=== PATIENT | male | born 1960 | race Caucasian/White ===

== ENCOUNTER 2020-10-02 14:58 | Outpatient (CLI) | payer OTHER, SELFPAY ==
--- NOTE | 2020-10-02 14:45 | DI.RAD_ITS ---
CLINICAL HISTORY: PAIN TECHNIQUE: 2D digital imaging was performed. COMPARISON: No exams were available for comparison FINDINGS: BONES: No acute fracture is present. No bony destructive lesion is seen. JOINTS: No dislocation present. SOFT TISSUE: Normal. IMPRESSION: No acute abnormality. DATA REPOSITORY: RADIATION DOSE DELIVERED:
== END 2020-10-02 14:59 | disposition home or self-care (01) ==
LOC: DIORS 14:58
PROVIDERS: PCP Nurse Practitioner; Visit Provider Student in an Organized Health Care Education/Training Program
DX: M25.511 Pain in right shoulder (principal)
CPT/HCPCS: 73030

== ENCOUNTER 2020-10-17 01:28 | Outpatient (CLI) | payer OTHER, SELFPAY ==
--- NOTE | 2020-10-17 08:00 | DI.MRI_ITS ---
EXAM: MR UPPER JOINT RT WO CLINICAL HISTORY: Worsening symptoms,rt AC JOINT PAIN,TENDONITIS,IMPINGEMENT SYNDROME TECHNIQUE: Multiplanar multisequence MRI of the shoulder was performed. COMPARISON: CR XR SHOULDER RT COMPLETE 2+V from 10/02/2020 FINDINGS: MARROW:There is no evidence of fracture, Hill-Sachs deformity, nor ominous osseous lesions. There are few small degenerative subarticular cysts noted lateral head. ROTATOR CUFF MECHANISM: AC JOINT/ACROMIUM: There are minimal degenerative changes in the AC joint. No downgoing osteophytes. The undersurface of the acromion is concave. No impinging undersurface soak evident at this level. . There is no evidence of os acromiale. Supraspinatus: There is a high-grade complete tear of the supraspinatus-rotator cuff tendon with retr action musculotendinous junction to the level the junction of mid and lateral thirds of the humeral h ead and fluid signal interposed in this region and seen in the subacromial-subdeltoid bursa. This le aves a gap distance of 2.3 cm AP by 1.9 cm distance from the torn retracted musculotendinous junction to the greater tuberosity. There is no prominent atrophy of the supraspinatus muscle. Infraspinatus: Intact. No evidence of tear nor muscle atrophy. Teres Minor: Intact. No evidence of tear nor muscle atrophy. Subscapularis/anterior cuff: Intact. No abnormal signal at the level of the multipennate insertional fibers. No significant tear nor atrophy. BICEPS TENDON: Exhibits normal position within the intertubercular groove. No obvious tear. No prominent tenosynovitis. LABRUM: Superior labrum is intact. There is a small focus of fluid signal in interposed between the posterior labrum and osseous glenoid consistent with small tear. Inferior labrum is intact. Mild in creased signal seen in the anterior labrum. There is no evidence of paralabral cyst. There is no de generative subarticular cysts in the osseous glenoid. GLENOHUMERAL JOINT: No prominent joint effusion. The majority of the fluid is in the subacromial-sub deltoid bursa. Minimal degenerative changes in the humeral head and osseous glenoid. No degenerativ e subarticular cysts. No prominent osteophytes.. CAPSULE: No capsular tears evident. The inferior glenohumeral ligament is intact. QUADRILATERAL SPACE: No evidence of mass in the region of the axillary nerve and dorsal circumflex hu meral vessels. Visualized triceps muscle at this level appears unremarkable. IMPRESSION: 1. The main finding here is prominent full-thickness tear of the supraspinatus-rotator cuff tendon wi th gap measurements as described above and prominent amount of fluid in the subacromial bursa. There is retraction of the musculotendinous junction to the level of the junction of the mid and lateral t hirds of the humeral head. No prominent muscle atrophy of the supraspinatus. There are small degene rative subarticular cysts and mild bone edema in the greater tuberosity on the lateral aspect of the humeral head. There are only minimal degenerative changes in the acromioclavicular joint. No promin ent impingement at this level. The undersurface of the acromion is concave. 2. There are no tear of the infraspinatus and teres minor nor obvious tearing of the multipennate ins ertional fibers of the anterior cuff-subscapularis. 3. Small labral tears as described above. No SLAP tear. No evidence of paralabral cyst. No degener ative subarticular cysts in the osseous glenoid. 4. DATA REPOSITORY:
== END 2020-10-17 01:48 ==
PROVIDERS: PCP Nurse Practitioner; Visit Provider Student in an Organized Health Care Education/Training Program
DX: M25.511 Pain in right shoulder (principal); M75.21 Bicipital tendinitis, right shoulder; M75.41 Impingement syndrome of right shoulder; M75.51 Bursitis of right shoulder; M75.121 Complete rotator cuff tear or rupture of right shoulder, not specified as traumatic; M75.81 Other shoulder lesions, right shoulder
CPT/HCPCS: 73221

== ENCOUNTER 2020-11-13 02:10 | Outpatient (CLI) | payer OTHER, SELFPAY ==
[2020-11-13 10:46] LABS: Source Nasal/Nares
[2020-11-13 13:49] LABS: COVID-19 PCR Negative (Negative)
== END 2020-11-13 02:11 | disposition home or self-care (01) ==
LOC: LBO 02:10
PROVIDERS: PCP Nurse Practitioner; Visit Provider Student in an Organized Health Care Education/Training Program
DX: Z20.822 Contact with and (suspected) exposure to COVID-19 (principal); Z01.818 Encounter for other preprocedural examination
CPT/HCPCS: 87635

== ENCOUNTER 2020-11-15 09:24 | Day surgery (SDC) | payer OTHER, SELFPAY ==
[2020-11-15] VITALS (12 sets, daily range): BP systolic 90–133; BP diastolic 52–84; PULSE 58–83; RESP 16–23; TEMP 36.3–36.9; O2SAT 92–96
[2020-11-15] MEDS: Lactated Ringers 1,000 ML 100 ML IV (10:07)
[2020-11-15] MEDS: ceFAZolin 2 GM/50 ML BAG IVPB (14:00)
[2020-11-15] MEDS: EPINEPHrine 30 MG/30 ML VIAL ×2 (14:35→14:45)
--- NOTE | 2020-11-15 16:23 | PDOC.DSDIS_ITS ---
Discharge Plan Disposition Patient Disposition: HOME Condition: Stable Discharge Details Reason For Visit: Right shoulder surgery Attending Provider: Harrison Cruz Primary Care Provider: Belen Cosby Home Meds and New Rx's Prescriptions: New naproxen 250 mg tablet 250 - 500 mg PO BID PRN (Reason: Moderate pain or swelling) Qty: 60 RF: 0 aspirin 81 mg tablet,delayed release (DR/EC) 81 mg PO DAILY 14 Days Qty: 14 RF: 0 oxycodone 5 mg tablet 5 - 10 mg PO Q4H PRN (Reason: moderate to severe pain) Qty: 22 RF: 0 Continued naproxen 250 mg tablet 250 - 500 mg PO BID PRN (Reason: pain, moderate) Qty: 60 RF: 0 Discontinued ibuprofen 800 mg tablet 800 mg PO BID PRN (Reason: pain) Qty: 60 RF: 0 Discharge Instructions Additional Instructions: Surgery: Shoulder arthroscopy with rotator cuff repair, extensive debridement, and subacromial decompression. Activity: You should keep your arm at your side in a neutral position at all times except for physical therapy. Do not try to lift or raise your arm using your own muscles. You should use the sling whenever you are out of the house. You may have to adjust the abduction pillow or remove it for comfort. At home it is best to remove the sling and rest the arm on a pillow at your side or support the operative side with your other hand. You may allow the arm to dangle at your side. A physical therapy prescription will be sent electronically to begin in 2-3 weeks. Prescriptions: Aspirin 81 mg take 1 daily to prevent a blood clot for 2 weeks Naproxen 250 mg take 1-2 every 12 hours with a meal as needed for moderate pain Oxycodone 5 mg take 1-2 every 4-6 hours as needed for severe pain You may use [id number] Tylenol (acetaminophen) as needed for mild pain. These pain medications may be taken all at once or in different combinations as needed. Also, recommend Colace (docusate) as a stool softener as surgery and pain medicine cause constipation. Dressings: Remove shoulder bandage after 3 days. Leave the sticky Steri-Strips in place until they fall off or remove them after you shower. Cover the incisions with Band-Aids or leave them open to air. You may shower after 5 days. Follow-up: 10-[address] Cruz You may take off the leg compression stockings this evening at home. You may also leave them on a few days longer if you have a history of leg swelling or edema. Let us know right away if you develop any redness, drainage, fevers, chest pain, or trouble breathing. Do not drink alcohol or drive for at least 24 hours after anesthesia. Please call the office during business hours with any questions or concerns. Referrals: Harrison Cruz MD [ [facility] STAFF PHYSICIAN] - Discharge Orders Discharge Orders: Discharge Order (Routine); Ordered 11/15/20 Ordered By: Harrison Cruz DS: Diagnosis Discharge Diagnosis (1) Rotator cuff tear, right: Status: Acute
--- NOTE | 2020-11-15 16:23 | W.PM.OP ---
Date of service: 11/15/20 Time of Service: 15:00 Operative Note Operative Note DATE OF PROCEDURE: 11/15/20 PRE-OP DIAGNOSIS: Right: 1. Rotator cuff tear 2. LHB tendinopathy 3. Bursitis 4. Impingement POST-OP DIAGNOSIS: same PROCEDURE: Right: 1. Rotator cuff repair, CPT# 38494. This involved repair of the supraspinatus using anchors and sutures to reattach the rotator cuff back to the footprint of the greater tuberosity. 2. Extensive debridement, CPT# 41966. This involved using arthroscopic hand instruments, power instruments, and radiofrequency instruments to release to debride areas of posterior labral tearing, anterior synovitis, bicipital groove fibrous tissue, and minimal articular sided rotator cuff fraying within the glenohumeral joint as well remove scar tissue and smooth bone spurs over the greater tuberosity supraspinatus footprint in the subacromial space. 3. Subacromial decompression with partial acromioplasty, CPT# 69672. This involved using arthroscopic power instruments and a radiofrequency wand to complete a bursectomy and remove bone spurs on the undersurface of the acromion. The hospital nursing assistant was medically required in order to help assist in techniques above, which require positioning the arm, holding the arthroscope, and manipulating multiple instruments and sutures at the same time. This cannot be done without the help of an experienced hospital nursing assistant. SURGEON: Harrison Cruz CAREER TECHNICAL SUPERVISOR: Xochitl Cooney ANESTHESIA TYPE: General LMA/ETT and Primary Nerve Block Refer to Anesthesia Record ESTIMATED BLOOD LOSS: 15 PATHOLOGY: none sent COMPLICATIONS: None Patient was transported to: PACU Patient's condition: stable Implants: Arthrex:5.5 mm SwiveLocks x 2 Indications: The patient was diagnosed with the above conditions and appropriately indicated for surgical intervention. Please see complete medical record for details. Findings: Exam under anesthesia: Mild limitation to terminal forward elevation and external rotation. No instability. Glenohumeral joint: Well-preserved articular cartilage throughout. Intact subscapularis. Minimal long head of the biceps injection about the bicipital groove without any obvious involvement of a subchondral cyst. Minimal adhesion versus fibrous tissue about the long of the biceps within the groove. Minimal fraying of articular sided rotator cuff, which was otherwise pristine and intact throughout. Intact infraspinatus. Moderate fraying posterior labrum without any displaced tear. Normal sublabral recess without any pathologic SLAP tear. Subacromial space: Moderate bursitis, especially laterally. Moderate undersurface acromial bone spur. Moderate greater tuberosity bone irregularity, covered in scar tissue, and near?complete bursal?sided supraspinatus rotator cuff tear. Minimal involvement of infraspinatus wrapping around most posteriorly. Split tear centrally of the supraspinatus with locally frayed and degenerative tissue. Moderately frayed tissue anteriorly. Otherwise excellent tissue more centrally on posteriorly. Excellent tissue excursion with reduction over the entirety of the greater tuberosity the lateral margin footprint. No full-thickness tear exposed with excellent 10-20% medial cuff tissue remnant. Procedure Description: In the operating room, general anesthesia was induced. Bilateral shoulders were examined. The patient was positioned in the beachchair position. All bony prominences were well-padded. Preoperative antibiotics were administered. The shoulder was prepped and draped in the usual sterile fashion. The correct patient, procedure, and side of the procedure were all verified prior to incision. Starting through the posterior portal a standard complete diagnostic arthroscopy was performed of the glenohumeral joint including inspection of the long head of the biceps, anterior and superior labrum, subscapularis tendon, supraspinatus and infraspinatus tendons, and axillary recess. The glenoid and humeral head cartilage as well as the posterior labrum were inspected from an anterior viewing portal. Significant findings and interventions noted above. The biceps tendon was preserved given lack of significant pathology on arthroscopic valuation of the long head biceps tendon, bicipital groove, and superior labrum. Starting through the posterior portal, the arthroscope was directed into the subacromial space. A lateral 50 yard line lateral portal was created. A combination of power instruments and a radiofrequency ablator were used to debride bursitis anteriorly, posteriorly, and laterally as well as expose and smooth bone spurring on the undersurface of the acromion. The coracoacromial ligament was partially released. The bursectomy was completed viewing laterally and working from posteriorly and the rotator cuff was thoroughly inspected with findings noted above. Cannulas were inserted at the superior anterior lateral and superior posterior lateral margins of the acromion as well as at the lateral 50 yard line portal. The rotator cuff tear was inspected and debrided of frayed tissue at the margins exposing a moderate size, but not full-thickness supraspinatus tear described above. Greater tuberosity was cleared of fibrous tissue and bony irregularity over the majority of the footprint to optimize bone tendon healing and the bursectomy extended far laterally for suture anchor placement. The arm was optimally positioned for trajectory and reduction which was tested with cuff grasper. Given the firm attachments healthy supraspinatus medially, decision was made to preserve this tissue and omit a medial suture anchor row. Instead, a self retrieving suture passer was used to pass a fiber tape in an inverted mattress fashion centered posteriorly and anteriorly to the slight split in frame of the bursal tear. Both suture pairs were provisionally reduced through the rigid lateral cannula and again arm position and reduction optimized with excellent tissue excursion and coverage of the prepared greater tuberosity footprint. As both anterior and posterior sutures aided in reduction of the slight split location all 4 fiber tape ends were brought through a 5.5 mm swivel lock anchor, which was selected for stronger fixation as a contain both repair repairs. The punch was used to localize placement this central lateral row anchor and the suture anchor deployed taking care to ensure proper tension and reduction without undue tension on the bursal tissue. The repair was inspected through range of motion and probed and found to have excellent footprint coverage and stability. There was a small gap between the tissue anterior, between, and posterior to the 2 horizontal mattress pairs. Given the size of the rotator cuff tear, decision was made to add an additional suture anchor. The self retrieving suture prep was used past [employer] in cinch mode anterior and then between the previous horizontal mattress sutures. Most posteriorly a lasso was used to secure the leading edge cuff of what was likely the infraspinatus. All 3 links were brought out laterally and provisional reduction was checked through the rigid cannula and optimized with the arm in a little more external rotation draping the 3 sutures over the previous 4 tails and securing tissue slightly posterior to anterior. The undersized punch was selected given the far lateral location and the tap were used to localize placement for this lateral anchor, which was deployed but did not engage the bone properly so it was removed in entirety. The regular size punch was then used to enlarge and confirm the same suture anchor location. Another 5.5 mm swivel lock anchor was loaded with the 3 links and appropriately secured down to bone taking care to ensure no undue tension was placed over the already reduced bursal type repair. The repair was inspected through shoulder range of motion and found to be stable with secure fixation. The shoulder was drained of arthroscopic fluid. All portal sites were copiously irrigated. These incisions were closed using 3-0 Monocryl in a buried fashion, covered with Mastisol, Steri-Strips, Xeroform, dry gauze, and ABDs. The dressings were covered and secured with Medipore tape. The operative extremity was placed into a sling for immobilization. The patient awoke from anesthesia without complication and was transferred to the recovery room in a stable condition.
[2020-11-15] MEDS: Lactated Ringers 1,000 ML 999 ML IV (18:31)
== END 2020-11-15 20:25 | disposition home or self-care (01) ==
PROVIDERS: PCP Nurse Practitioner; Visit Provider Student in an Organized Health Care Education/Training Program
PROC: (CPT 29827; principal; 2020-11-15 11:15)
PROC: (CPT 23430; 2020-11-15 11:15)
DX: M75.111 Incomplete rotator cuff tear or rupture of right shoulder, not specified as traumatic (principal); M75.21 Bicipital tendinitis, right shoulder; M75.51 Bursitis of right shoulder; M75.41 Impingement syndrome of right shoulder; G89.18 Other acute postprocedural pain
CPT/HCPCS: 29827; 29823; 29826; 76942; J0690; J1100; J1885; J2001; J2370; J2405; J2704